=== PATIENT | female | born 1960 | race Caucasian/White ===

== ENCOUNTER 2018-08-11 20:28 | Inpatient (IN) ==
[2018-08-11] MEDS ORDERED: NS 1,000 ML IV ONE (20:44)
[2018-08-11] MEDS ORDERED: ASPIRIN PO ONE (20:44)
--- NOTE | 2018-08-11 21:13 | Diag Imaging Result Doc PS360 ---
EXAM: CHEST-PORTABLE 08/11/2018 HISTORY: stroke like symptoms TECHNIQUE: AP portable chest at 2053 COMMENT: There is ill-defined patchy opacity in the lung bases which was not present on 07/04/2016. IMPRESSION: Pulmonary edema versus pneumonia. Electronically signed by Pantera Moody 08/11/2018 9:11 PM
--- NOTE | 2018-08-11 21:26 | Diag Imaging Result Doc PS360 ---
EXAM: CT HEAD W/O CONTRAST 08/11/2018 HISTORY: stroke like symptoms TECHNIQUE: This exam was performed using automated exposure control, adjustment of mA or kV according to patient size, and/or use of iterative reconstruction technique. COMMENT: There is no evidence of mass effect, bleed, or abnormal extra-axial fluid collection. The visualized paranasal sinuses are clear. There is no evidence of acute bony disease. Compared to the previous examination of 07/08/2016 there has been no significant change. IMPRESSION: No evidence of acute disease. Electronically signed by Pantera Moody 08/11/2018 9:23 PM
[2018-08-11 21:47] LABS: BASO# 0.04 X1000 (0.0-0.2); BASO% 0.5 % (0.0-0.8); EOS# 0.23 X1000 (0.0-0.7); HEMATOCRIT 34.4 % (37.0-47.0); HEMOGLOBIN 11.1 g/dL (12.0-16.0); IMM GRAN# 0.03 X1000 (0.0-0.04); IMM GRAN% 0.4 % (0.0-0.5); MCH 30.1 PG (27-31); MCHC 32.3 g/dL (33-37); MCV 93.2 FL (81-99); MONO# 0.44 X1000 (0.11-0.59); MONO% 5.6 % (1.7-9.3); MPV 9.6 FL (7.4-10.4); NEUT# 4.95 X1000 (1.4-6.5); NEUT% 63.5 % (42.2-75.2); PLT 332 X1000 (130-400); RBC 3.69 XMIL (4.2-5.4); WBC 7.79 X1000 (4.8-10.8)
[2018-08-11 21:49] LABS: INR 1.07; PROTIME 14.7 Seconds (11.0-16.0)
[2018-08-11 21:50] LABS: PTT 27.7 Seconds (22.3-41.8)
[2018-08-11 22:00] LABS: AGAP 14; ALB/GLOB RATIO 0.9; ALBUMIN 3.6 g/dL (3.5-5.0); ALKALINE PHOSPHATASE 59 U/L (32-104); BUN 20 mg/dL (8-22); CALCIUM 8.9 mg/dL (8.8-10.2); CHLORIDE 103 mmol/L (98-107); COSMO 287; CREATININE 0.5 mg/dL (0.5-0.9); ESTIMATED GFR > 60; GLUCOSE 82 mg/dL (70-104); GOT 43 U/L (10-30); GPT 14 U/L (10-36); POTASSIUM 3.3 mmol/L (3.5-5.1); SODIUM 143 mmol/L (136-145); TCO2 26 mmol/L (25-35); TOTAL BILIRUBIN 0.21 mg/dL (0.20-1.00); TOTAL PROTEIN 7.7 g/dL (6.3-8.3)
[2018-08-11 22:08] LABS: URINE SOURCE CATH
[2018-08-11] MEDS ORDERED: ROCEPHIN 1 GM in NS 50 ML IV ONE (22:13)
[2018-08-11 22:24] LABS: UR AMPHETAMINES QUAL PRESUMPTIVE POSITIVE (NONE DETECT); UR BARBITUATES QUAL NONE DETECTED (NONE DETECT); UR BENZODIAZEPIN QUAL PRESUMPTIVE POSITIVE (NONE DETECT); UR CANNABINOIDS QUAL NONE DETECTED (NONE DETECT); UR COCAINE QUAL NONE DETECTED (NONE DETECT); UR METHADONE QUAL NONE DETECTED (NONE DETECT); UR OPIATES QUAL NONE DETECTED (NONE DETECT); UR OXYCODONE QUAL NONE DETECTED (NONE DETECT); UR PCP QUAL NONE DETECTED (NONE DETECT)
[2018-08-11 22:32] LABS: BILIRUBIN URINE NEGATIVE (NEGATIVE); BLOOD URINE TRACE (NEGATIVE); COLOR YELLOW; GLUCOSE URINE NEGATIVE (NEGATIVE); KETONE URINE 40 mg/dL (NEGATIVE); LEUKOCYTES URINE NEGATIVE (NEGATIVE); NITRITE URINE NEGATIVE (NEGATIVE); PROTEIN URINE 30 mg/dL (NEGATIVE); SP GRAVITY URINE 1.032; TURBIDITY URINE CLEAR (CLEAR); UROBILINOGEN URINE 2 mg/dL (NORMAL)
[2018-08-11 22:33] LABS: UR EPITHELIAL CELLS <10 /HPF (<10); URINE BACTERIA NEGATIVE /HPF; URINE RBC <10 /HPF (<10); URINE WBC <10 /HPF (<10)
[2018-08-11 23:42] LABS: ALLEN TEST YES; BE 3.6 mmoll (-3.0-3.0); BLOOD TYPE ARTERIAL; HCO3-(ACT) 27.7 mmoll (20.0-26.0); METHB 1.1 % (0.0-1.5); MODALITY ROOM AIR; O2(CT) 13.7 mL/dL (15.0-23.0); O2HB 94.9 % (95.0-99.0); PCO2(98.6) 39 mmHg (35-45); PO2(98.6) 76 mmHg (60-100); SAMPLE BLOOD; SAO2 97.7 % (95.0-100.0); THB 10.2 g/dL (11.5-17.4); pH(98.6) 7.46 (7.35-7.45)
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
--- NOTE | 2018-08-12 00:36 | PROVIDER DOCUMENTATION ---
This chart was entered by Sravani Dawkins Scribe, acting as scribe for Jorge Charlton MD. HPI-Neurological Disorder - General Stated Complaint: stroke like symptoms Time Seen by Provider: 08/11/18 20:29 Source: EMS Allergies/Adverse Reactions: Patient Allergies Allergy/AdvReac Type Severity Reaction Status Date / Time gabapentin [From Neurontin] Allergy Unknown Unknown Verified 08/11/18 22:35 Home Medications: Home Medication List Medication Instructions Recorded Confirmed Last Taken Type Atorvastatin Calcium [Lipitor] 40 mg PO DAILY 07/04/16 08/11/18 07/08/16 05:30 History Hydroxyzine Pamoate [Vistaril] 25 mg PO TID 07/04/16 08/11/18 07/08/16 05:30 His tory - History of Present Illness-Neuro Nature of Presenting Problem: Patient is poor historian and has trouble focus on the questions pt c/o cough w/ greenish sputum and unsteady gait for the last 5 days, 2 days ago she fell and hit her head, today family reports that she was altered w/ slurred speech and so they called EMS to bring pt to hospital. patient denies other complaints. Severity: reports: moderate Onset/Duration: reports: 3 days ago Timing: reports: still present, getting worse Context: reports: impaired speech. denies: head injury, fever, facial droop Character of Altered Mental Status: reports: other (slurred speech) Any recent trauma/injury?: reports: none Character of Deficits: reports: impaired speech, decreased ability to stand, decreased ability to walk Cognitive Baseline: alert, oriented x3 Gait Baseline: walks without assistance Associated Symptoms: reports: decreased ability to walk or stand, slurred speech , trouble walking. denies: short of breath, headache, loss of consciousness, numbness in legs/feet, paresthesia, tingling in legs/feet Similar Symptoms Previously?: No Recently seen or treated by another doctor?: No Review of Systems - Adult - REVIEW OF SYSTEMS - ADULT Constitutional: reports: see HPI. denies: chills, fever Eyes: reports: no symptoms reported Ears, Nose, Mouth & Throat: reports: no symptoms reported Cardiovascular: reports: no symptoms reported. denies: chest pain, edema Respiratory: reports: see HPI Gastrointestinal: reports: no symptoms reported. denies: abdominal pain, nausea, vomiting Genitourinary: reports: no symptoms reported Integumentary: reports: no symptoms reported Neurological: reports: loss of balance, slurred speech. denies: dizziness/vertigo, headache/migraines Past History - Adult - PAST MEDICAL HISTORY-ADULT Review of Records: reports: Old Records Reviewed, Nursing Assessment Review, Medications Reviewed, Social history reviewed & non-contributory. Major Childhood Illnesses: reports: denies history Cardiovascular: reports: CHF Respiratory: reports: denies history Gastrointestinal: reports: denies history Obstetrical/Gynecological: reports: denies history Genitourinary: reports: denies history Musculoskeletal: reports: denies history Neurological: reports: headaches/migraines Endocrine/Immune: reports: denies history Other Conditions: reports: denies history - PRIOR SURGERIES/PROCEDURES Surgical/Procedure History: reports: hysterectomy - IMMUNIZATION STATUS Childhood Immunizations: See Nurse Assessment Flu Vaccine: See Nurse Assessment - FAMILY HISTORY Family History: reviewed, not pertinent - SOCIAL HISTORY Smoking: cigarettes, greater than 1 pack/day Provider spent 3-5 mins advising pt. on dangers of tobacco.: Discussed manners to quit use, and f/u contacts for add'l counseling. Substance Use: none/never Alcohol Use Frequency: never Living Situation: alone Physical Exam- Neurological - Physical Exam-Neuro General Appearance: alert, mild distress, other (unsteady/ataxic gait) Eye Exam: bilateral eye: normal inspection, PERRL HENMT: normocephalic/atraumatic, moist mucous membranes Head Injury: no evidence of injury. 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 negative: aphasia, facial droop, focal weakness Integumentary: normal color, warm/dry Psych/Mental Status: oriented x 3 - Glascow Coma Scale Best Eye Response: (4) open spontaneously Best Verbal Response: (5) oriented Best Motor Response: (6) obeys commands Total Glascow Score: 15 Progress - PLAN OF CARE/RESULTS Progress/Plan/Lab Results: Vital Signs - 8 hr 08/11/18 20:48 08/11/18 22:13 08/11/18 22:15 Temperature 98.8 F Pulse Rate 104 H 98 H 89 Respiratory Rate 15 30 H 24 Blood Pressure 131/89 101/78 O2 Sat by Pulse Oximetry 98 91 L 91 L 08/11/18 22:18 08/11/18 22:20 08/11/18 22:26 Temperature Pulse Rate 93 H 105 H 89 Respiratory Rate 22 22 31 H Blood Pressure 93/69 76/51 O2 Sat by Pulse Oximetry 100 89 L 90 L 08/11/18 22:29 08/11/18 22:30 08/11/18 22:33 Temperature Pulse Rate 87 88 87 Respiratory Rate 19 17 15 Blood Pressure 59/41 106/78 O2 Sat by Pulse Oximetry 95 98 97 08/11/18 22:40 08/11/18 22:48 08/11/18 22:50 Temperature Pulse Rate 85 87 97 H Respiratory Rate 18 16 17 Blood Pressure 124/62 O2 Sat by Pulse Oximetry 97 77 L 08/11/18 23:00 08/11/18 23:03 08/11/18 23:10 Temperature Pulse Rate 104 H 107 H 96 H Respiratory Rate 22 25 H 17 Blood Pressure 98/78 O2 Sat by Pulse Oximetry 08/11/18 23:11 08/11/18 23:17 08/11/18 23:20 Temperature Pulse Rate 102 H 90 97 H Respiratory Rate 22 19 30 H Blood Pressure 125/80 113/80 O2 Sat by Pulse Oximetry 97 08/11/18 23:30 08/11/18 23:40 08/11/18 23:50 Temperature Pulse Rate 88 93 H 89 Respiratory Rate 14 15 24 Blood Pressure O2 Sat by Pulse Oximetry 89 L 08/12/18 00:00 08/12/18 00:08 08/12/18 00:10 Temperature Pulse Rate 84 86 104 H Respiratory Rate 18 21 23 Blood Pressure 113/80 O2 Sat by Pulse Oximetry 95 100 88 L 08/12/18 00:20 Temperature Pulse Rate 107 H Respiratory Rate 20 Blood Pressure O2 Sat by Pulse Oximetry Laboratory Results - last 24 hr 08/11/18 08/11/18 08/11/18 21:28 21:28 21:28 WBC 7.79 RBC 3.69 L Hgb 11.1 L Hct 34.4 L MCV 93.2 MCH 30.1 MCHC 32.3 L RDW Std Deviation 14.0 Plt Count 332 MPV 9.6 Immature Gran % (Auto) 0.4 Neut % (Auto) 63.5 Lymph % (Auto) 27.0 Davidson % (Auto) 5.6 Eos % (Auto) 3.0 Baso % (Auto) 0.5 Immature Gran # (Auto) 0.03 Neut # (Auto) 4.95 Lymph # (Auto) 2.10 Davidson # (Auto) 0.44 Eos # (Auto) 0.23 Baso # (Auto) 0.04 PT 14.7 INR 1.07 PTT (Actin FS) 27.7 Specimen Type Sample Site pH pCO2 pO2 HCO3 Base Excess Oxyhemoglobin ABG O2 Sat (Calculated) ABG O2 Saturation ABG Carboxyhemoglobin ABG Methemoglobin Mookie Test A-a O2 Difference Total Hemoglobin Lactate Blood Gas Modality FiO2 % Sodium 143 Potassium 3.3 L Chloride 103 Carbon Dioxide 26 Anion Gap 14 BUN 20 Creatinine 0.5 Estimated GFR/1.73 m2 > 60 BUN/Creatinine Ratio 40 Glucose 82 Calculated Osmolality 287 Calcium 8.9 Total Bilirubin 0.21 AST 43 H ALT 14 Alkaline Phosphatase 59 Troponin T Total Protein 7.7 Albumin 3.6 Globulin 4.1 Albumin/Globulin Ratio 0.9 Urine Source Urine Color Urine Turbidity Urine pH Ur Specific [place] Urine Protein Ur Glucose (Stick) Ur Ketones (Stick) Urine Blood Urine Nitrite Urine Bilirubin Urobilinogen Dipstick Urine Leukocytes Urine WBC (Auto) Urine RBC (Auto) U Epithel Cells (Auto) Urine Bacteria (Auto) Urine Opiates Screen Ur Oxycodone Screen Ur Methadone, Qual Ur Barbiturates Screen Ur Phencyclidine Scrn Ur Amphetamines Screen U Benzodiazepines Scrn Urine Cocaine Screen U Cannabinoids Screen 08/11/18 08/11/18 08/11/18 21:28 22:00 22:00 WBC RBC Hgb Hct MCV MCH MCHC RDW Std Deviation Plt Count MPV Immature Gran % (Auto) Neut % (Auto) Lymph % (Auto) Davidson % (Auto) Eos % (Auto) Baso % (Auto) Immature Gran # (Auto) Neut # (Auto) Lymph # (Auto) Davidson # (Auto) Eos # (Auto) Baso # (Auto) PT INR PTT (Actin FS) Specimen Type Sample Site pH pCO2 pO2 HCO3 Base Excess Oxyhemoglobin ABG O2 Sat (Calculated) ABG O2 Saturation ABG Carboxyhemoglobin ABG Methemoglobin Mookie Test A-a O2 Difference Total Hemoglobin Lactate Blood Gas Modality FiO2 % Sodium Potassium Chloride Carbon Dioxide Anion Gap BUN Creatinine Estimated GFR/1.73 m2 BUN/Creatinine Ratio Glucose Calculated Osmolality Calcium Total Bilirubin AST ALT Alkaline Phosphatase Troponin T < 0.010 Total Protein Albumin Globulin Albumin/Globulin Ratio Urine Source CATH Urine Color YELLOW Urine Turbidity CLEAR Urine pH 6.0 Ur Specific [place] 1.032 Urine Protein 30 A Ur Glucose (Stick) NEGATIVE Ur Ketones (Stick) 40 A Urine Blood TRACE A Urine Nitrite NEGATIVE Urine Bilirubin NEGATIVE Urobilinogen Dipstick 2 A Urine Leukocytes NEGATIVE Urine WBC (Auto) <10 Urine RBC (Auto) <10 U Epithel Cells (Auto) <10 Urine Bacteria (Auto) NEGATIVE Urine Opiates Screen NONE DETECTED Ur Oxycodone Screen NONE DETECTED Ur Methadone, Qual NONE DETECTED Ur Barbiturates Screen NONE DETECTED Ur Phencyclidine Scrn NONE DETECTED Ur Amphetamines Screen PRESUMPTIVE POSITIVE A U Benzodiazepines Scrn PRESUMPTIVE POSITIVE A Urine Cocaine Screen NONE DETECTED U Cannabinoids Screen NONE DETECTED 08/11/18 23:20 WBC RBC Hgb Hct MCV MCH MCHC RDW Std Deviation Plt Count MPV Immature Gran % (Auto) Neut % (Auto) Lymph % (Auto) Davidson % (Auto) Eos % (Auto) Baso % (Auto) Immature Gran # (Auto) Neut # (Auto) Lymph # (Auto) Davidson # (Auto) Eos # (Auto) Baso # (Auto) PT INR PTT (Actin FS) Specimen Type ARTERIAL Sample Site R RADIAL pH 7.46 H pCO2 39 pO2 76 HCO3 27.7 H Base Excess 3.6 H Oxyhemoglobin 94.9 L ABG O2 Sat (Calculated) 13.7 L ABG O2 Saturation 97.7 ABG Carboxyhemoglobin 1.80 ABG Methemoglobin 1.1 Mookie Test YES A-a O2 Difference 25.0 Total Hemoglobin 10.2 L Lactate 0.60 Blood Gas Modality ROOM AIR FiO2 % 21.0 Sodium Potassium Chloride Carbon Dioxide Anion Gap BUN Creatinine Estimated GFR/1.73 m2 BUN/Creatinine Ratio Glucose Calculated Osmolality Calcium Total Bilirubin AST ALT Alkaline Phosphatase Troponin T Total Protein Albumin Globulin Albumin/Globulin Ratio Urine Source Urine Color Urine Turbidity Urine pH Ur Specific [place] Urine Protein Ur Glucose (Stick) Ur Ketones (Stick) Urine Blood Urine Nitrite Urine Bilirubin Urobilinogen Dipstick Urine Leukocytes Urine WBC (Auto) Urine RBC (Auto) U Epithel Cells (Auto) Urine Bacteria (Auto) Urine Opiates Screen Ur Oxycodone Screen Ur Methadone, Qual Ur Barbiturates Screen Ur Phencyclidine Scrn Ur Amphetamines Screen U Benzodiazepines Scrn Urine Cocaine Screen U Cannabinoids Screen Orders Category Date Time Status Cardiac Monitoring DIRECTED Care 08/11/18 20:41 Active Finger Stick Blood Sugar (ED) DIRECTED Care 08/11/18 20:41 Active Misc. NRSG Communication Order DIRECTED Care 08/11/18 20:41 Active Oxygen Therapy- ED Nursing DIRECTED Care 08/11/18 20:41 Active Saline Loc NOW Care 08/11/18 20:41 Active CHEST-PORTABLE [RAD] Stat Exams 08/11/18 20:[address] HEAD W/O CONTRAST [CT] Stat Exams 08/11/18 20:41 Completed ABG [RESP] Routine Lab 08/11/18 23:20 Completed BLOOD CULTURE [BLDCUL] Stat Lab 08/12/18 00:08 Received CBC WITH ELECTRONIC DIFF [HEME] Stat Lab 08/11/18 21:28 Completed COMPREHENSIVE METABOLIC PANEL [CHEM] Stat Lab 08/11/18 21:28 Completed INFLUENZA SCREEN A/B Stat Lab 08/12/18 00:09 Received OCCULT BLOOD SCREENING [STOOL] Stat Lab 08/12/18 00:20 Uncollected PROTIME WITH INR [COAG] Stat Lab 08/11/18 21:28 Completed PTT [COAG] Stat Lab 08/11/18 21:28 Completed SPUTUM CULTURE WITH GRAM STAIN [RM] Stat Lab 08/11/18 22:58 Uncollected TROPONIN T Stat Lab 08/11/18 21:28 Completed URINALYSIS W/POSS RFLX CULT [URINALYSIS] Stat Lab 08/11/18 22:00 Completed URINE DRUG SCREEN Stat Lab 08/11/18 22:00 Completed 0.9% Sodium Chloride Inj [Ns] 1,000 ml Med 08/11/18 20:44 Discontinued IV 999 mls/hr Aspirin Med 08/11/18 20:44 Discontinued 325 mg PO NOW ONE CefTRIAXONE [Rocephin] 1 gm Med 08/11/18 22:13 Discontinued 0.9% Sodium Chloride Inj [Ns] 50 ml IV NOW EKG [EKG] Stat Ther 08/11/18 20:41 Ordered Transfer/Admit Order [TRANSFER] Routine Transfer 08/12/18 00:01 Ordered Result Diagrams: 08/11/18 21:28 08/11/18 21:28 - REASSESSMENT Reassessment #1 Time Reassessed: 22:10 Status: unchanged - EKG 1 Time of EKG reading by physician:: 20:47 EKG Read and Signed by:: William Dotson EKG Interpretation (*Must complete 3 of following elements*): Normal (sinus tachycardia, otherwise normal ECG) Rate: 103 Rhythm: sinus [place]: normal QRS: normal [place] Interval: normal - XRAY 1 XRAY: Bilateral XRAY Study: Chest Impression: Abnormal (COMMENT: There is ill-defined patchy opacity in the lung bases which was not present on 07/04/2016. IMPRESSION: Pulmonary edema versus pneumonia. Electronically signed by Pantera Moody 08/11/2018 9:11 PM [id number]) Comparison with other Films: changes noted - CT/MRI 1 CT Study: Head Impression: Normal (IMPRESSION: No evidence of acute disease. Electronically signed by Pantera Moody 08/11/2018 9:23 PM [id number]) - CONSULTS/PCP/HOSPITALIST Notification #1 *Consult/PCP/Hospitalist*: Dr. Lees Time Discussed: 22:58 Consult Disposition: Admit (Hx, PE and patient care discussed with Dr. Lees, accepted.) Departure - Departure Date of Disposition Decision: 08/11/18 Time of Disposition Decision: 22:57 DIAGNOSIS: Gait abnormality Altered mental status Qualifiers: Altered mental status type: unspecified Qualified Code(s): R41.82 - Altered mental status, unspecified Pneumonia Qualifiers: Pneumonia type: due to unspecified organism Laterality: bilateral Lung location: lower lobe of lung Qualified Code(s): J18.1 - Lobar pneumonia, unsp ecified organism Fall Qualifiers: Encounter type: initial encounter Qualified Code(s): W19.XXXA - Unspecified fall, initial encounter Disposition: HOME 01 Certified Medical Emergency: Emergent Condition: Stable Referrals and Follow-Ups: None,PCP [Primary Care Provider] - - Critical Care Note This patient required my direct & personal management of CC.: No Attestation - Physician/ NATHANIEL Attestation Patient care was provided by Advanced Practice Provider:: No The physician spent face to face time with patient:: Yes Advanced Practice Provider documentation review:: Supervising physician onsite and consulted in the evaluation and care of this patient. The physician did have a face to face encounter with the patient. - NIH Stroke Scale Level of Consciousness: 0-Alert LOC Questions (ask month and age): 0-Answers Both Correctly LOC Commands (ask to open & close eyes;make a fist, let go): 0-Obeys Both Correctly Best Gaze (horizontal eye movement): 0-Normal Visual (use finger movement, counting or visual threat): 0-No Visual Loss Facial Palsy (show teeth or raise eyebrows & close eyes tght: 0-Symmetrical Movement Motor Function-left arm: 0-Normal Motor Function-right arm: 0-Normal Motor Function-left le-Normal Motor Function-right le-Normal Limb Ataxia([id number], or heel to lauren): 0-No Ataxia Sensory(pin prick to face,arms,trunk,legs-compare side/side): 0-No Ataxia Best Language(name item/read sentence.Ex-Down to Earth): 0-No Aphasia Dysarthria(Pt read words or say words Ex.Mama,Tip-Top,Thanks: 0-Normal Articulation NIH Total Score: 0 Modified Tulio Score Criteria: 0-no symptoms This chart was documented by the indicated scribe, (Sravani Dawkins Scribnatalia) and accurately reflects the services I performed and decisions made by me, Jorge Schmidt MD, as attested by the provider's signature.
[2018-08-12] MEDS ORDERED: SODIUM CHLORIDE 0.9% INJ SCH (00:40)
[2018-08-12] MEDS ORDERED: KLOR-CON PO ONE ×2 (00:40→16:31)
[2018-08-12] MEDS ORDERED: NS 1,000 ML IV SCH (00:40)
[2018-08-12] MEDS ORDERED: ZOFRAN IV PRN (01:47)
[2018-08-12] MEDS ORDERED: TYLENOL PO PRN (01:47)
[2018-08-12] MEDS: ZITHROMAX 500 MG/NS 500 MG/250 ML IVPB IV SCH (02:28)
[2018-08-12] MEDS: PROTONIX IV SCH (02:29)
[2018-08-12] MEDS: DUONEB (A & A) INH SCH ×4 (03:35→21:20)
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
--- NOTE | 2018-08-12 08:08 | Diag Imaging Result Doc PS360 ---
EXAM: CHEST-2 VIEWS 08/12/2018 HISTORY: PNA,cough,dyspnea TECHNIQUE: PA and lateral chest COMMENT: There are ill-defined opacities bilaterally but particularly in the lingula. This has worsened since 08/11/2018. IMPRESSION: Bronchopneumonia. Electronically signed by aPntera Moody 08/12/2018 8:06 AM
[2018-08-12 08:10] LABS: BASO# 0.03 X1000 (0.0-0.2); BASO% 0.4 % (0.0-0.8); EOS% 2.9 % (0.0-10.0); HEMATOCRIT 29.1 % (37.0-47.0); HEMOGLOBIN 9.2 g/dL (12.0-16.0); IMM GRAN# 0.03 X1000 (0.0-0.04); IMM GRAN% 0.4 % (0.0-0.5); LYMPH# 2.58 X1000 (1.2-3.4); LYMPH% 37.2 % (20.5-51.1); MCHC 31.6 g/dL (33-37); MCV 94.8 FL (81-99); MONO# 0.37 X1000 (0.11-0.59); MONO% 5.3 % (1.7-9.3); MPV 9.8 FL (7.4-10.4); NEUT# 3.73 X1000 (1.4-6.5); NEUT% 53.8 % (42.2-75.2); PLT 284 X1000 (130-400); RBC 3.07 XMIL (4.2-5.4); RDW 13.9 % (11.5-14.5); WBC 6.94 X1000 (4.8-10.8)
[2018-08-12 08:16] LABS: AGAP 10; BUN 12 mg/dL (8-22); CALCIUM 7.7 mg/dL (8.8-10.2); CHLORIDE 111 mmol/L (98-107); COSMO 291; CREATININE 0.5 mg/dL (0.5-0.9); ESTIMATED GFR > 60; GLUCOSE 80 mg/dL (70-104); POTASSIUM 3.3 mmol/L (3.5-5.1); SODIUM 147 mmol/L (136-145); TCO2 26 mmol/L (25-35)
--- NOTE | 2018-08-12 09:22 | EKG Report ---
Test Performed on : 08/11/2018 8:44:03 PM Test Reason : Stroke like symptoms Blood Pressure : / mmHG Vent. Rate : 103 BPM Atrial Rate : 103 BPM P-R Int : 160 ms QRS Dur : 072 ms QT Int : 354 ms P-R-T Axes : 052 027 014 degrees QTc Int : 463 ms Sinus tachycardia. Otherwise normal ECG When compared with ECG of 04-JUL-2016 18:24, Nonspecific T wave abnormality now evident in Inferior leads Unconfirmed Result
--- NOTE | 2018-08-12 09:27 | EKG Report ---
Test Performed on : 08/12/2018 01:29:18 AM Test Reason : Stroke like symptoms Blood Pressure : / mmHG Vent. Rate : 105 BPM Atrial Rate : 105 BPM P-R Int : 146 ms QRS Dur : 084 ms QT Int : 372 ms P-R-T Axes : 053 046 038 degrees QTc Int : 491 ms Sinus tachycardia. Otherwise normal ECG When compared with ECG of 11-AUG-2018 20:44, (Unconfirmed) No significant change was found Unconfirmed Result
[2018-08-12] MEDS: COLACE PO SCH (09:28)
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
[2018-08-12] MEDS: NICODERM PATCH TD SCH (18:28)
[2018-08-12] MEDS: ROCEPHIN 1 GM in NS 50 ML IV SCH (22:14)
[2018-08-13] MEDS: PROTONIX IV SCH (00:25)
[2018-08-13] MEDS: ZITHROMAX 500 MG/NS 500 MG/250 ML IVPB IV SCH (00:26)
[2018-08-13] MEDS: DUONEB (A & A) INH SCH ×4 (03:42→21:00)
[2018-08-13 07:39] LABS: BASO# 0.02 X1000 (0.0-0.2); BASO% 0.4 % (0.0-0.8); EOS# 0.27 X1000 (0.0-0.7); EOS% 4.8 % (0.0-10.0); HEMATOCRIT 29.4 % (37.0-47.0); HEMOGLOBIN 9.1 g/dL (12.0-16.0); IMM GRAN# 0.04 X1000 (0.0-0.04); IMM GRAN% 0.7 % (0.0-0.5); LYMPH# 2.52 X1000 (1.2-3.4); LYMPH% 44.4 % (20.5-51.1); MCH 29.7 PG (27-31); MCV 96.1 FL (81-99); MONO# 0.31 X1000 (0.11-0.59); MONO% 5.5 % (1.7-9.3); MPV 9.8 FL (7.4-10.4); NEUT# 2.51 X1000 (1.4-6.5); NEUT% 44.2 % (42.2-75.2); PLT 307 X1000 (130-400); RBC 3.06 XMIL (4.2-5.4); RDW 14.3 % (11.5-14.5); WBC 5.67 X1000 (4.8-10.8)
[2018-08-13 08:05] LABS: AGAP 11; BUN 8 mg/dL (8-22); CALCIUM 8.2 mg/dL (8.8-10.2); CHLORIDE 110 mmol/L (98-107); COSMO 287; CREATININE 0.5 mg/dL (0.5-0.9); ESTIMATED GFR > 60; GLUCOSE 89 mg/dL (70-104); SODIUM 145 mmol/L (136-145); TCO2 24 mmol/L (25-35)
[2018-08-13 08:09] LABS: POTASSIUM 3.5 mmol/L (3.5-5.1)
[2018-08-13] MEDS: COLACE PO SCH (08:37)
[2018-08-13] MEDS: NICODERM PATCH TD SCH (08:37)
[2018-08-13] MEDS: SUBOXONE 8 MG/2 MG SL SCH ×2 (14:08→21:38)
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
[2018-08-13] MEDS: ROCEPHIN 1 GM in NS 50 ML IV SCH (21:38)
[2018-08-13] MEDS: VALIUM PO SCH (21:39)
[2018-08-14] MEDS: DUONEB (A & A) INH SCH ×2 (03:23→10:40)
[2018-08-14] MEDS: PROTONIX IV SCH (05:03)
[2018-08-14] MEDS: ZITHROMAX 500 MG/NS 500 MG/250 ML IVPB IV SCH (05:03)
[2018-08-14 07:38] LABS: AGAP 10; BUN 9 mg/dL (8-22); CALCIUM 7.8 mg/dL (8.8-10.2); CHLORIDE 110 mmol/L (98-107); COSMO 289; CREATININE 0.4 mg/dL (0.5-0.9); ESTIMATED GFR > 60; GLUCOSE 98 mg/dL (70-104); POTASSIUM 3.8 mmol/L (3.5-5.1); SODIUM 146 mmol/L (136-145); TCO2 26 mmol/L (25-35)
[2018-08-14 08:47] VITALS: BP 117/81
[2018-08-14] MEDS: NICODERM PATCH TD SCH (09:00)
[2018-08-14] MEDS ORDERED: LIPITOR PO SCH (09:00)
[2018-08-14] MEDS: COLACE PO SCH (09:00)
[2018-08-14] MEDS: SUBOXONE 8 MG/2 MG SL SCH (09:00)
[2018-08-14] MEDS: VALIUM PO SCH (09:00)
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
== END 2018-08-14 13:42 | disposition home or self-care (01) | DRG 193 ==
LOC: ED 20:28 → SUATTDRO 08-12 01:10 → 3N 08-12 01:10
PROVIDERS: ATTEND Internal Medicine
CPT/HCPCS: 70450; 71010; 71020; 71045; 71046; 80048; 80053; 80101; 80301; 80307; 80324; 80345; 80346; 80353; 80358; 80361; 80365; 81001; 82805; 82948; 83992; 84484; 85025; 85610; 85730; 87040; 87275; 87276; 87804; 93005; 94640; 94761; 94799; 96365; 96366; 97161; 99285; A9270; C9113; G0431; G0434; G0479; G0480; J0456; J0696; J7030; S0164; XXXXX